=== PATIENT | female | born 1940 | race Caucasian/White ===

== ENCOUNTER 2017-06-07 11:36 | Emergency (ER) | payer MEDICARE ==
[2017-06-07 11:38] VITALS: BP 152/81; PULSE 80; RESP 18; TEMP 98.4; O2SAT 99
[2017-06-07] MEDS ORDERED: SODIUM CHLORIDE 0.9% FLUSH 10 ML FLUSH IVF PRN (12:00)
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
--- NOTE | 2017-06-07 12:08 | PD ---
HPI Chief Complaint: generalized weakness Time Seen by Provider: 12:06 Travel History International Travel<30 days: No Contact w/Intl Traveler<30days: No Traveled to known affect area: No History of Present Illness HPI patient is a 76-year-old female presents emergency department for evaluation of weakness for the past few months. She states that she is just been not feeling particularly well. States that she is having some intermittent chest pain but only at systems. States the pain is mild right side without radiation. Denies any shortness of breath denies any nausea vomiting denies any weight loss denies any headaches blurred vision focalized weakness. PFSH Past Medical History High Cholesterol: Yes Tetanus Vaccination: > 5 Years Influenza Vaccination: No ?: Not Past Surgical History Surgical History: No Previous Surgery Social History Alcohol Use: No Tobacco Use: No Substance Use: No Allergies-Medications (Allergen,Severity, Reaction): Coded Allergies: Sulfa (Sulfonamide Antibiotics) (Unverified Allergy, Severe, Cramping, ) amlodipine (Unverified Allergy, Severe, Muscle Pain, 06/07/17) Tried 4 different statins in past and all had same result= severe muscle cramping and pain atorvastatin (Unverified Allergy, Severe, Muscle Pain, 06/07/17) Tried 4 different statins in past and all had same result= severe muscle cramping and pain penicillin G (Unverified Allergy, Severe, Anaphylaxis, 06/07/17) pravastatin (Unverified Allergy, Severe, Muscle Pain, 06/07/17) Tried 4 different statins in past and all had same result= severe muscle cramping and pain simvastatin (Unverified Allergy, Severe, Muscle Pain, 06/07/17) Tried 4 different statins in past and all had same result= severe muscle cramping and pain Reported Meds & Prescriptions Reported Meds & Active Scripts Active No Active Prescriptions or Reported Medications Review of Systems Except as stated in HPI: all other systems reviewed are Neg Physical Exam Narrative GENERAL: Well-developed well-nourished in no obvious distress SKIN: Focused skin assessment warm/dry. HEAD: Atraumatic. Normocephalic. EYES: Pupils equal and round. No scleral icterus. No injection or drainage. ENT: No nasal bleeding or discharge. Mucous membranes pink and moist. NECK: Trachea midline. No JVD. CARDIOVASCULAR: Regular rate and rhythm. No murmur appreciated. RESPIRATORY: No accessory muscle use. Clear to auscultation. Breath sounds equal bilaterally. GASTROINTESTINAL: Abdomen soft, non-tender, nondistended. Hepatic and splenic margins not palpable. MUSCULOSKELETAL: No obvious deformities. No clubbing. No cyanosis. No edema. NEUROLOGICAL: Awake and alert. No obvious cranial nerve deficits. Motor grossly within normal limits. Normal speech. PSYCHIATRIC: Appropriate mood and affect; insight and judgment normal. Data Data Last Documented VS Vital Signs Date Time Temp Pulse Resp B/P (MAP) Pulse Ox O2 Delivery O2 Flow Rate FiO2 06/07/17 14:44 06/07/17 14:38 75 18 97 Room Air 06/07/17 11:38 98.4 Orders Orders Electrocardiogram (06/07/17 11:57) Ckmb (Isoenzyme) Profile (06/07/17 11:57) Complete Blood Count With Diff (06/07/17 11:57) Comprehensive Metabolic Panel (06/07/17 11:57) Magnesium (Mg) (06/07/17 11:57) Prothrombin Time / Inr (Pt) (06/07/17 11:57) Act Partial Throm Time (Ptt) (06/07/17 11:57) Troponin I (06/07/17 11:57) Ecg Monitoring (06/07/17 11:57) Iv Access Insert/Monitor (06/07/17 11:57) Oximetry (06/07/17 11:57) Sodium Chloride 0.9% Flush (Ns Flush) (06/07/17 12:00) Chest, Pa & Lat (06/07/17 11:57) CKMB (06/07/17 12:40) CKMB% (06/07/17 12:40) Ed Discharge Order (06/07/17 14:39) Labs Laboratory Tests Test 06/07/17 12:40 White Blood Count 6.5 TH/MM3 Red Blood Count 4.50 MIL/MM3 Hemoglobin 13.4 GM/DL Hematocrit 38.8 % Mean Corpuscular Volume 86.2 FL Mean Corpuscular Hemoglobin 29.7 PG Mean Corpuscular Hemoglobin Concent 34.5 % Red Cell Distribution Width 14.0 % Platelet Count 212 TH/MM3 Mean Platelet Volume 8.9 FL Neutrophils (%) (Auto) 58.8 % Lymphocytes (%) (Auto) 26.5 % Monocytes (%) (Auto) 9.0 % Eosinophils (%) (Auto) 3.8 % Basophils (%) (Auto) 1.9 % Neutrophils # (Auto) 3.8 TH/MM3 Lymphocytes # (Auto) 1.7 TH/MM3 Monocytes # (Auto) 0.6 TH/MM3 Eosinophils # (Auto) 0.2 TH/MM3 Basophils # (Auto) 0.1 TH/MM3 CBC Comment DIFF FINAL Differential Comment Prothrombin Time 10.9 SEC Prothromb Time International Ratio 1.0 RATIO Activated Partial Thromboplast Time 24.7 SEC Blood Urea Nitrogen 13 MG/DL Creatinine 0.93 MG/DL Random Glucose 86 MG/DL Total Protein 7.0 GM/DL Albumin 3.7 GM/DL Calcium Level 9.3 MG/DL Magnesium Level 2.2 MG/DL Alkaline Phosphatase 69 U/L Aspartate Amino Transf (AST/SGOT) 21 U/L Alanine Aminotransferase (ALT/SGPT) 36 U/L Total Bilirubin 0.4 MG/DL Sodium Level 141 MEQ/L Potassium Level 3.8 MEQ/L Chloride Level 107 MEQ/L Carbon Dioxide Level 26.1 MEQ/L Anion Gap 8 MEQ/L Estimat Glomerular Filtration Rate 58 ML/MIN Total Creatine Kinase 153 U/L Creatine Kinase MB 2.4 NG/ML Troponin I LESS THAN 0.02 NG/ML MDM Medical Decision Making Medical Screen Exam Complete: Yes Emergency Medical Condition: Yes Differential Diagnosis Generalized weakness, anemia, ACS seems unlikely, AMI highly unlikely. Narrative Course Patient roomed in emergency department, she appears well and in no distress. Highly atypical symptoms for cardiac etiology. Still EKG was performed and 2 sets of cardiac enzymes both of which negative. Patient has no obvious source of her fatigue identified. She was offered admission to the chest pain center but would rather follow up with her primary care physician which think is reasonable this time. She stable for discharge otherwise. Discussed return to ED criteria. Diagnosis Primary Impression: Fatigue Qualified Codes: R53.83 - Other fatigue Scripts No Active Prescriptions or Reported Meds Disposition: 01 DISCHARGE HOME Condition: Stable Bharat Blount MD Jun 07, 2017 12:08
--- NOTE | 2017-06-07 12:28 | RADRPT ---
EXAM DATE/TIME: 06/07/2017 12:14 [facility] COMPARISON: CHEST PA & LAT, August 09, 2014, 10:02. INDICATIONS : Chest pressure, dizziness, confusion. MEDICAL HISTORY : None. SURGICAL HISTORY : None. ENCOUNTER: Initial ACUITY: 1 day PAIN SCORE: 0/10 LOCATION: Bilateral chest FINDINGS: PA and lateral views of the chest demonstrate the lungs to be symmetrically aerated without evidence of mass, infiltrate or effusion. The cardiomediastinal contours are unremarkable. Osseous structure s are intact. CONCLUSION: No acute disease. No significant change has occurred. Kapil Garcia MD on June 07, 2017 at 12:26 Board Certified Radiologist. This report was verified electronically.
[2017-06-07 12:40] VITALS: O2SAT 99
[2017-06-07 13:03] LABS: AUTOMATED NEUTROPHIL # 3.8 TH/MM3 (1.8-7.7); BASOPHIL # 0.1 TH/MM3 (0-0.2); BASOPHIL % 1.9 % (0.0-2.0); EOSINOPHIL # 0.2 TH/MM3 (0-0.4); EOSINOPHIL % 3.8 % (0.0-4.0); HEMATOCRIT 38.8 % (35.0-46.0); HEMO FLAGS DIFF FINAL; LYMPH % 26.5 % (9.0-44.0); LYMPHOCYTE # 1.7 TH/MM3 (1.0-4.8); MEAN CELL VOLUME 86.2 FL (80.0-100.0); MEAN CORPUSCULAR HEMOGLOBIN 29.7 PG (27.0-34.0); MEAN CORPUSCULAR HGB CONC 34.5 % (32.0-36.0); NEUT % 58.8 % (16.0-70.0); PLATELET COUNT 212 TH/MM3 (150-450); WHITE BLOOD COUNT 6.5 TH/MM3 (4.0-11.0)
[2017-06-07 13:13] LABS: APTT (PATIENT) 24.7 SEC (24.3-30.1); PROTHROMBIN TIME - PATIENT 10.9 SEC (9.8-11.6)
[2017-06-07 13:21] LABS: ANION GAP 8 MEQ/L (5-15); AST (GOT) 21 U/L (15-37); BICARBONATE 26.1 MEQ/L (21.0-32.0); BLOOD UREA NITROGEN 13 MG/DL (7-18); CHLORIDE 107 MEQ/L (98-107); GLOMERULAR FILTRATION RATE 58 ML/MIN (>89); MAGNESIUM 2.2 MG/DL (1.5-2.5); POTASSIUM 3.8 MEQ/L (3.5-5.1); SODIUM (NA) 141 MEQ/L (136-145)
[2017-06-07 13:22] LABS: ALT (GPT) 36 U/L (10-53)
[2017-06-07 13:25] LABS: ALKALINE PHOSPHATASE 69 U/L (45-117); CREATINE KINASE 153 U/L (26-192); TOTAL BILIRUBIN ADULT 0.4 MG/DL (0.2-1.0)
[2017-06-07 13:37] LABS: CKMB 2.4 NG/ML (0.5-3.6)
[2017-06-07 14:38] VITALS: BP 142/63; PULSE 75; RESP 18; O2SAT 97
--- NOTE | 2017-06-08 18:13 | EKG ---
Date Performed: 06/07/2017 Time Performed: 12:25:29 PTAGE: 76 years EKG: Sinus rhythm LOW QRS VOLTAGE IN PRECORDIAL LEADS BORDERLINE ECG Since PREVIOUS TRACING , QRS voltage is somwhat lower in lateral precordial leads, otherwise no significant change. PREVIOUS TRACIN05/06/2005 07.28 DOCTOR: Adonay Echavarria Interpretating Date/Time 06/08/2017 18:12:44
== END 2017-06-07 14:45 | disposition home or self-care (01) ==
LOC: NEPC 11:36
DX: R53.83 Other fatigue (principal); R53.1 Weakness; E78.00 Pure hypercholesterolemia, unspecified; Z88.2 Allergy status to sulfonamides; Z88.0 Allergy status to penicillin; Z88.8 Allergy status to other drugs, medicaments and biological substances
CPT/HCPCS: 71020; 80053; 82550; 82552; 83735; 84484; 85025; 85610; 85730; 93005; 99285